=== PATIENT | female | born 1955 | race Caucasian/White ===

== ENCOUNTER → 2016-10-20 | Outpatient (CLI) | payer BC ==
--- NOTE | 2016-10-20 08:16 | US ---
EXAMINATION TYPE: US abdomen complete DATE OF EXAM: 10/20/2016 7:57 AM COMPARISON: NONE CLINICAL HISTORY: R74.8 Elevated liver enzymes,. EXAM MEASUREMENTS: Liver Length: 16.2 cm Gallbladder Wall: 0.3 cm CBD: 0.5 cm Spleen: 11.2 cm Right Kidney: 11.8 x 4.6 x 5.0 cm Left Kidney: 11.4 x 5.3 x 5.2 cm Pancreas: Tail obscured by overlying bowel gas Liver: wnl Gallbladder: echogenic foci, does not appear mobile Evidence for sonographic Camargo's sign: no CBD: wnl Spleen: wnl Right Kidney: wnl Left Kidney: wnl Upper IVC: wnl Abd Aorta: wnl The liver is homogenous. The intrahepatic portion of the IVC and proximal abdominal aorta are within normal limits. Nonmobile gallstone. Common bile duct is unremarkable. The visualized portions of th e pancreas are homogenous. The spleen is unremarkable. Kidneys are symmetric and free of hydronephr osis. No renal lesions are seen. IMPRESSION: Cholelithiasis. Nonmobile gallstone identified.
--- NOTE | 2016-10-20 14:52 | MM ---
Reason for exam: screening (asymptomatic). Last mammogram was performed 1 year and 1 month ago. History: Patient is postmenopausal. Took estrogen for 1 year. Physical Findings: A clinical breast exam by your physician is recommended on an annual basis and results should be correlated with mammographic findings. MG Screening Mammo w CAD Bilateral CC and MLO view(s) were taken. Prior study comparison: September 10, 2015, bilateral MG screening mammo w CAD. March 21, 2013, bilateral digital screening mammo w/CAD. The breast tissue is heterogeneously dense. This may lower the sensitivity of mammography. There is no discrete abnormality. No significant changes when compared with prior studies. ASSESSMENT: Negative, BI-RAD 1 RECOMMENDATION: Routine screening mammogram of both breasts in 1 year.
== END | disposition home or self-care (01) ==
LOC: RADMAMWWP 07:14
PROVIDERS: ATTEND Family Medicine
DX: Z12.31 Encounter for screening mammogram for malignant neoplasm of breast (principal); K80.20 Calculus of gallbladder without cholecystitis without obstruction; R74.8 Abnormal levels of other serum enzymes
CPT/HCPCS: 76700; G0202

== ENCOUNTER → 2017-12-18 | Outpatient (CLI) | payer BC ==
--- NOTE | 2017-12-19 07:43 | XR ---
EXAMINATION TYPE: XR Hip Complete LT DATE OF EXAM: 12/19/2017 COMPARISON: NONE HISTORY: 62 year-old female with left hip pain TECHNIQUE: 2 views FINDINGS: There is mild axial joint space narrowing with marginal spurring. Osteitis pubis is noted. Left SI teresa int appears intact. No acute fracture or dislocation. IMPRESSION: Mild left hip osteoarthrosis. Osteitis pubis. No acute osseous abnormality seen.
== END | disposition home or self-care (01) ==
LOC: RADXRYALE 16:21
PROVIDERS: ATTEND Physician Assistant Medical
DX: M16.12 Unilateral primary osteoarthritis, left hip (principal); M85.30 Osteitis condensans, unspecified site
CPT/HCPCS: 73502

== ENCOUNTER → 2017-12-21 | Outpatient (CLI) | payer BC ==
--- NOTE | 2017-12-21 10:52 | US ---
EXAMINATION TYPE: US carotid duplex BILAT DATE OF EXAM: 12/21/2017 COMPARISON: NONE CLINICAL HISTORY: R42 Dizziness,E78.2 Mixed Hyperlipidemia...... right sided headache, visual changes EXAM MEASUREMENTS: RIGHT: Peak Systolic Velocity (PSV) cm/sec ----- Right CCA: 63.9 ----- Right ICA: 88.6 ----- Right ECA: 101.8 ICA/CCA ratio: 1.4 RIGHT: End Diastole cm/sec ----- Right CCA: 22.2 ----- Right ICA: 33.7 ----- Right ECA: 32.3 LEFT: Peak Systolic Velocity (PSV) cm/sec ----- Left CCA: 87.9 ----- Left ICA: 80.1 ----- Left ECA: 72.2 ICA/CCA ratio: 0.9 LEFT: End Diastole cm/sec ----- Left CCA: 31.1 ----- Left ICA: 37.5 ----- Left ECA: 15.0 VERTEBRALS (direction of flow): Right Vertebral: Antegrade Left Vertebral: Antegrade Rhythm: Normal No significant velocity elevations. Mild plaque bilateral bifurcations IMPRESSION: Mild degree of grayscale atheromatous plaquing with no sonographically evident hemodynam ically significant stenosis within either visualized carotid arterial system.
--- NOTE | 2017-12-21 11:44 | ECHOF ---
Referral Reason:R42 Dizziness,E78.2 Mixed Hyperlipidemia..... MEASUREMENTS -------- HEIGHT: 170.2 cm WEIGHT: 104.3 kg BP: RVIDd: 2.5 cm (< 3.3) IVSd: 1.1 cm (0.6 - 1.1) LVIDd: 4.0 cm (3.9 - 5.3) LVPWd: 1.1 cm (0.6 - 1.1) IVSs: 1.3 cm LVIDs: 2.6 cm LVPWs: 1.3 cm LAESV Index (A-L): 19.71 ml/m Ao Diam: 2.6 cm (2.0 - 3.7) AV Cusp: 1.8 cm (1.5 - 2.6) LA Diam: 3.5 cm (2.7 - 3.8) EPSS: 0.4 cm MV E Asif: 0.67 m/s MV DecT: 316 ms MV A Asif: 1.03 m/s MV E/A Ratio: 0.65 RAP: 5.00 mmHg RVSP: 27.22 mmHg MV EF SLOPE: 72.41 mm/s (70 - 150) MV EXCURSION: 1.43 cm (> 18.000) FINDINGS -------- Sinus rhythm. This was a technically adequate study. The left ventricular size is normal. There is borderline concentric left ventricular hypertrophy. Overall left ventricular systolic function is normal with, an EF between 55 - 60 %. The right ventricle is normal in size and function. Normal LA size by volume 22+/-6 ml/m2. The right atrium is normal in size. The aortic valve is trileaflet, and appears structurally normal. No aortic stenosis or regurgitation. The mitral valve leaflets are mildly thickened. There is trace to mild mitral regurgitation. Trace tricuspid regurgitation present. Right ventricular systolic pressure is normal at < 35 mmHg. There is no evidence of pulmonary hypertension. Trace/mild (physiologic) pulmonic regurgitation. The aortic root size is normal. Normal inferior vena cava with normal inspiratory collapse consistent with estimated right atrial pre ssure of 5 mmHg. There is no pericardial effusion. CONCLUSIONS -------- 1. Sinus rhythm. 2. This was a technically adequate study. 3. The left ventricular size is normal. 4. There is borderline concentric left ventricular hypertrophy. 5. Overall left ventricular systolic function is normal with, an EF between 55 - 60 %. 6. Normal LA size by volume 22+/-6 ml/m2. 7. The aortic valve is trileaflet, and appears structurally normal. No aortic stenosis or regurgitati on. 8. The mitral valve leaflets are mildly thickened. 9. There is trace to mild mitral regurgitation. 10. Trace tricuspid regurgitation present. 11. Right ventricular systolic pressure is normal at < 35 mmHg. 12. There is no evidence of pulmonary hypertension. 13. Trace/mild (physiologic) pulmonic regurgitation. 14. The aortic root size is normal. 15. There is no pericardial effusion. MANAGER PRINTING: Hadley Lopez RDCS
== END | disposition home or self-care (01) ==
LOC: RADECHMAIN 08:12
PROVIDERS: ATTEND Family Medicine
DX: I65.23 Occlusion and stenosis of bilateral carotid arteries (principal); I34.0 Nonrheumatic mitral (valve) insufficiency; I37.1 Nonrheumatic pulmonary valve insufficiency; I51.7 Cardiomegaly; H53.30 Unspecified disorder of binocular vision; E78.2 Mixed hyperlipidemia
CPT/HCPCS: 93306; 93880

== ENCOUNTER → 2018-01-11 | Outpatient (CLI) | payer BC ==
--- NOTE | 2018-01-11 12:50 | US ---
EXAMINATION TYPE: US abdomen complete DATE OF EXAM: 01/11/2018 COMPARISON: US 10/20/2016, CLINICAL HISTORY: R945 ABN LIVER FUNCTION STUDIES. EXAM MEASUREMENTS: Liver Length: 14.6 cm Gallbladder Wall: Surgically absent CBD: 0.8 cm Spleen: 10.9 cm Right Kidney: 10.2 x 4.5 x 4.9 cm Left Kidney: 10.7 x 4.7 x 4.7 cm Pancreas: Obscured by bowel gas Liver: Diffusely heterogeneous Gallbladder: Surgically absent Evidence for sonographic Camargo's sign: No CBD: wnl Spleen: Possible granulomas visualized Right Kidney: No hydronephrosis. Corticomedullary thinning Left Kidney: No hydronephrosis. Lower pole obscured by bowel gas. Upper IVC: wnl Abd Aorta: wnl IMPRESSION: 1. Some mild fatty infiltration of the liver may be present. Visualized abdomen ultrasound is otherwi se unremarkable.
== END | disposition home or self-care (01) ==
LOC: RADUSWWP 07:54
PROVIDERS: ATTEND Family Medicine
DX: R94.5 Abnormal results of liver function studies (principal)
CPT/HCPCS: 76700

== ENCOUNTER → 2018-03-08 | Outpatient (CLI) | payer BC ==
[2018-03-08 09:01] LABS: Basophils % (A) 1 %; Eosinophils # (A) 0.3 k/uL (0-0.7); Eosinophils % (A) 5 %; HCT 43.7 % (34.0-46.0); HGB 14.5 gm/dL (11.4-16.0); Lymphocytes # (A) 1.7 k/uL (1.0-4.8); Lymphocytes % (A) 30 %; MCH 29.5 pg (25.0-35.0); MCHC 33.1 g/dL (31.0-37.0); MCV 89.1 fL (80.0-100.0); Mean Platelet Volume 7.5; Monocytes # (A) 0.6 k/uL (0-1.0); Monocytes % (A) 10 %; Neutrophils % (A) 52 %; Platelet Count 272 k/uL (150-450); RBC 4.91 m/uL (3.80-5.40); RDW 13.5 % (11.5-15.5); WBC 5.7 k/uL (3.8-10.6)
[2018-03-08 09:20] LABS: ALT 913 U/L (9-52); Albumin 4.1 g/dL (3.5-5.0); Alkaline Phosphatase 637 U/L (38-126); Anion Gap 6 mmol/L; Blood Urea Nitrogen 17 mg/dL (7-17); Calcium 9.9 mg/dL (8.4-10.2); Carbon Dioxide 28 mmol/L (22-30); Chloride 107 mmol/L (98-107); Glucose 99 mg/dL (74-99); Potassium 5.1 mmol/L (3.5-5.1); Sodium 141 mmol/L (137-145); Total Bilirubin 1.1 mg/dL (0.2-1.3)
[2018-03-08 09:34] LABS: AST 855 U/L (14-36)
[2018-03-08 17:41] LABS: Protein, Total 7.4 g/dL (6.2-8.2)
[2018-03-08 18:45] LABS: Hepatitis C IgG Antibody Non-Reactive (Non-Reactive)
[2018-03-09 12:32] LABS: Ceruloplasmin 38.6 mg/dL (20.0-60.0)
[2018-03-11 09:15] LABS: Albumin 3.68 g/dL (3.80-4.90); Gamma Globulin 1.45 g/dL (0.70-1.50)
== END | disposition home or self-care (01) ==
LOC: LABWHC1 08:08
PROVIDERS: ATTEND Internal Medicine Gastroenterology
DX: R94.5 Abnormal results of liver function studies (principal)
CPT/HCPCS: 36415; 80053; 82103; 82390; 82728; 83516; 83540; 83550; 84165; 85025; 86038; 86803; 87340

== ENCOUNTER → 2018-03-15 | Outpatient (CLI) | payer BC ==
[2018-03-15 10:46] LABS: ALT 496 U/L (9-52); AST 359 U/L (14-36); Albumin 4.2 g/dL (3.5-5.0); Alkaline Phosphatase 377 U/L (38-126); Anion Gap 9 mmol/L; Blood Urea Nitrogen 19 mg/dL (7-17); Calcium 10.3 mg/dL (8.4-10.2); Carbon Dioxide 26 mmol/L (22-30); Chloride 106 mmol/L (98-107); Glucose 105 mg/dL (74-99); Potassium 4.4 mmol/L (3.5-5.1); Sodium 141 mmol/L (137-145); Total Bilirubin 0.9 mg/dL (0.2-1.3); Total Protein 8.2 g/dL (6.3-8.2)
[2018-03-15 16:53] LABS: Hepatitis A Antibody IgM Non-Reactive (Non-Reactive); Hepatitis B Core IgM Non-Reactive (Non-Reactive)
== END | disposition home or self-care (01) ==
LOC: LABWHC1 08:30
PROVIDERS: ATTEND Internal Medicine Gastroenterology
DX: R74.8 Abnormal levels of other serum enzymes (principal)
CPT/HCPCS: 36415; 80053; 80074

== ENCOUNTER → 2018-05-10 | Outpatient (CLI) | payer BC ==
[2018-05-10 09:35] LABS: Basophils # (A) 0.1 k/uL (0-0.2); Basophils % (A) 1 %; Eosinophils # (A) 0.2 k/uL (0-0.7); Eosinophils % (A) 2 %; HCT 44.6 % (34.0-46.0); HGB 14.5 gm/dL (11.4-16.0); Lymphocytes # (A) 2.3 k/uL (1.0-4.8); Lymphocytes % (A) 29 %; MCH 28.8 pg (25.0-35.0); MCHC 32.4 g/dL (31.0-37.0); MCV 88.9 fL (80.0-100.0); Mean Platelet Volume 6.8; Monocytes # (A) 0.7 k/uL (0-1.0); Monocytes % (A) 9 %; Neutrophils # (A) 4.6 k/uL (1.3-7.7); Neutrophils % (A) 57 %; Platelet Count 296 k/uL (150-450); RBC 5.02 m/uL (3.80-5.40); RDW 13.4 % (11.5-15.5); WBC 8.1 k/uL (3.8-10.6)
[2018-05-10 17:18] LABS: Albumin 4.1 g/dL (3.80-4.90); Albumin/Globulin Ratio 1.58 (1.20-2.10); Anion Gap 7.1 mmol/L (4.00-12.00); Calcium 9.8 mg/dL (8.7-10.3); Carbon Dioxide 26.9 mmol/L (21.6-31.8); Globulin 2.6 g/dL (2.1-3.7); Potassium 4.8 mmol/L (3.5-5.5); Total Bilirubin 0.5 mg/dL (0.2-1.2); Total Protein 6.7 g/dL (6.2-8.2)
== END ==
LOC: LABWHC1 08:39
PROVIDERS: ATTEND Internal Medicine Gastroenterology
DX: R94.5 Abnormal results of liver function studies (principal)
CPT/HCPCS: 36415; 80053; 85025

== ENCOUNTER → 2018-11-22 | Outpatient (CLI) | payer BC ==
--- NOTE | 2018-11-25 10:05 | MM ---
Reason for exam: screening (asymptomatic). Last mammogram was performed 2 years and 1 month ago. History: Patient is postmenopausal. Took estrogen for 1 year. Physical Findings: A clinical breast exam by your physician is recommended on an annual basis and results should be correlated with mammographic findings. MG Screening Mammo w CAD Bilateral CC and MLO view(s) were taken. Prior study comparison: October 20, 2016, bilateral MG screening mammo w CAD. September 10, 2015, bilateral MG screening mammo w CAD. The breast tissue is heterogeneously dense. This may lower the sensitivity of mammography. There is no discrete abnormality. ASSESSMENT: Negative, BI-RAD 1 RECOMMENDATION: Routine screening mammogram of both breasts in 1 year.
== END | disposition home or self-care (01) ==
LOC: RADMAMWWP 08:19
PROVIDERS: ATTEND Obstetrics & Gynecology
DX: Z12.31 Encounter for screening mammogram for malignant neoplasm of breast (principal)
CPT/HCPCS: 77067

== ENCOUNTER → 2020-08-03 | Outpatient (CLI) | payer OTHER ==
--- NOTE | 2020-08-04 10:24 | MM ---
Reason for exam: screening (asymptomatic). Last mammogram was performed 1 year and 8 months ago. History: Patient is postmenopausal. Took estrogen for 1 year. Physical Findings: A clinical breast exam by your physician is recommended on an annual basis and results should be correlated with mammographic findings. MG Screening Mammo w CAD Bilateral CC and MLO view(s) were taken. Prior study comparison: November 22, 2018, bilateral MG screening mammo w CAD. October 20, 2016, bilateral MG screening mammo w CAD. The breast tissue is heterogeneously dense. This may lower the sensitivity of mammography. Finding: There is a 4 mm and 7mm equal density (isodense), obscured oval mass in the upper outer quadrant of the left breast and left central breast. There is a chronic nodularity in the right breast, stable. ASSESSMENT: Incomplete: need additional imaging evaluation, BI-RAD 0 RECOMMENDATION: Special view mammogram of the left breast. If lesion persists on supplemental views, image directed ultrasound is recommended. [facility] will attempt to contact patient to return for supplemental views and ultrasound if indicated.
== END | disposition home or self-care (01) ==
LOC: RADMAMWWP 09:47
PROVIDERS: ATTEND Family Medicine
DX: Z12.31 Encounter for screening mammogram for malignant neoplasm of breast (principal)
CPT/HCPCS: 77067

== ENCOUNTER → 2020-08-05 | Outpatient (CLI) | payer OTHER ==
--- NOTE | 2020-08-05 10:32 | MM ---
Reason for exam: additional evaluation requested from abnormal screening. Last mammogram was performed less than 1 month ago. History: Patient is postmenopausal. Took estrogen for 1 year. Physical Findings: Nurse did not find any significant physical abnormalities on exam. MG Work Up Mamm w CAD LT Spot compression CC, spot compression MLO, and LM view(s) were taken of the left breast. Prior study comparison: August 03, 2020, bilateral MG screening mammo w CAD. November 22, 2018, bilateral MG screening mammo w CAD. There are scattered fibroglandular densities. Nodule left breast 12-1 o'clock 6.4cm from nipple. A second nodule 3cm from nipple measuring 5mm. These results were verbally communicated with the patient and result sheet given to the patient on 08/05/20. ASSESSMENT: Incomplete: need additional imaging evaluation, BI-RAD 0 RECOMMENDATION: Ultrasound of the left breast.
--- NOTE | 2020-08-05 10:44 | USB ---
Reason for exam: additional evaluation requested from abnormal screening. History: Patient is postmenopausal. Took estrogen for 1 year. US Breast Workup Limited LT Left limited breast ultrasound including focal area of concern, retroareolar and axilla demonstrates a 0.6 x 0.9 x 0.6cm oval, hypoechoic lesion at 1 o'clock posterior enhancements for which a biopsy is recommended, a 0.4 x 0.4 x 0.2cm oval, cystic lesion at 6 o'clock, a 0.4 x 0.6 x 0.3cm oval, cystic lesion at 8 o'clock and a 1.8 x 2.4 x 0.9cm oval lymph node at the axilla. These results were verbally communicated with the patient and result sheet given to the patient on 08/05/20. ASSESSMENT: Suspicious, BI-RAD 4 RECOMMENDATION: Ultrasound core biopsy of the left breast. 1 o'clock Called [facility] with mammographic findings. Office will schedule patient for surgical consult one reports are recieved. PRELIMINARY REPORT CALLED AND FAXED ON 08/05/20.
== END | disposition home or self-care (01) ==
LOC: RADMAMWWP 08:10
PROVIDERS: ATTEND Family Medicine
DX: R92.8 Other abnormal and inconclusive findings on diagnostic imaging of breast (principal)
CPT/HCPCS: 77065

== ENCOUNTER → 2021-04-14 | Outpatient (CLI) | payer OTHER ==
--- NOTE | 2021-04-15 10:47 | MM ---
Reason for exam: follow-up at short interval from prior study. Last mammogram was performed 8 months ago. History: Patient is postmenopausal. Ultrasound-guided core biopsy of the left breast, August 2020. Took estrogen for 1 year. Physical Findings: Nurse did not find any significant physical abnormalities on exam. MG Diagnostic Mammo LT w CAD CC and MLO view(s) were taken of the left breast. Prior study comparison: August 05, 2020, left breast MG work up mamm w CAD LT. August 03, 2020, bilateral MG screening mammo w CAD. There are scattered fibroglandular densities. Left upper outer quadrant mass slightly smaller at 8mm versus 10mm previously. Clip is not at the mass. Stable anterior medial left nodularity, likely a cyst on ultrasound. These results were verbally communicated with the patient and result sheet given to the patient on 04/14/21. ASSESSMENT: Incomplete: need additional imaging evaluation, BI-RAD 0 RECOMMENDATION: Ultrasound of the left breast.
--- NOTE | 2021-04-15 11:01 | USB ---
Reason for exam: additional evaluation requested from abnormal screening. History: Patient is postmenopausal. Ultrasound-guided core biopsy of the left breast, August 2020. Took estrogen for 1 year. US Breast LT Technologist: Elsa Kessler Left complete breast ultrasound includes all four quadrants, the retroareolar region and axilla. Finding demonstrates a 0.5 x 0.4 x 0.4cm cystic lesion at 8 o'clock, stable, benign and a 7 x 6 x 6mm lesion at 1 o'clock versus 9 x 6 x 6mm previously 8 months ago, unable to demonstrate that this area was biopsied. But given pathology diagnosis of fibroadenoma and smaller size after 8 months, we suspect post biopsy clip malpositioning. Short term follow up recommended. These results were verbally communicated with the patient and result sheet given to the patient on 04/14/21. ASSESSMENT: Probably benign, BI-RAD 3 RECOMMENDATION: Follow-up diagnostic mammogram of both breasts in 3 months.
== END | disposition home or self-care (01) ==
LOC: RADMAMWWP 13:42
PROVIDERS: ATTEND Family Medicine
DX: N60.02 Solitary cyst of left breast (principal); N63.21 Unspecified lump in the left breast, upper outer quadrant; Z78.0 Asymptomatic menopausal state
CPT/HCPCS: 77065

== ENCOUNTER → 2021-07-22 | Outpatient (CLI) | payer OTHER ==
--- NOTE | 2021-07-22 14:47 | MM ---
Reason for exam: follow-up at short interval from prior study. Last mammogram was performed 3 months ago. History: Patient is postmenopausal. Ultrasound-guided core biopsy of the left breast, August 2020. Took estrogen for 1 year. Physical Findings: Nurse did not find any significant physical abnormalities on exam. MG Diagnostic Mammo w CAD [place] Bilateral CC and MLO view(s) were taken. Prior study comparison: April 14, 2021, left breast MG diagnostic mammo LT w CAD. August 05, 2020, left breast MG work up mamm w CAD LT. The breast tissue is heterogeneously dense. This may lower the sensitivity of mammography. There is chronic nodularity in the left breast. Focal asymmetry not reproduced. No significant new findings when compared with previous films. These results were verbally communicated with the patient and result sheet given to the patient on 07/22/21. ASSESSMENT: Benign, BI-RAD 2 RECOMMENDATION: Routine screening mammogram of both breasts in 1 year.
== END | disposition home or self-care (01) ==
LOC: RADMAMWWP 13:46
PROVIDERS: ATTEND Family Medicine
DX: R92.8 Other abnormal and inconclusive findings on diagnostic imaging of breast (principal); Z78.0 Asymptomatic menopausal state
CPT/HCPCS: 77066

== ENCOUNTER → 2023-08-21 | Outpatient (CLI) | payer MEDICARE ==
--- NOTE | 2023-08-22 14:37 | MM ---
Reason for Exam: Screening (asymptomatic). Last mammogram was performed 1 year(s) and 1 month(s) ago. Patient History: Menarche at age 15. First Full-Term at age 27. Postmenopausal. Estrogen for 1 year until age 44. 08/2020, Ultrasound-Guided Core Biopsy on the Left side. Risk Values: Ana 5 year model risk: 2.2%. NCI Lifetime model risk: 8.2%. Prior Study Comparison: 04/14/2021 Left Diagnostic Mammogram, [facility]. 07/22/2021 Bilateral Diagnostic Mammogram, [facility]. 07/25/2022 Bilateral MG 3D screening mammo w/cad, [facility]. Tissue Density: There are scattered areas of fibroglandular density. Findings: Analyzed By CAD. Asymmetry left breast lateral aspect on CC view 5.3 cm from nipple measuring 8 mm unclear on MLO view. Knee the posterior nipple line on MLO view. Right breast There is no suspicious group of microcalcifications or new suspicious mass. Overall Assessment: Incomplete: need additional imaging evaluation, BI-RAD 0 Management: Diagnostic Mammogram of the left breast. Diagnostic Breast Ultrasound of the left breast. [facility] will attempt to contact patient to return for supplemental views and ultrasound if indicated. Patient should continue monthly self-breast exams. A clinical breast exam by your physician is recommended on an annual basis. This exam should not preclude additional follow-up of suspicious palpable abnormalities. Note on Ana scores and lifetime risk: 1. A Ana score greater than 3% is considered moderate risk. If this is the case, consider specialist referral to assess eligibility for a risk reducing agent. 2. If overall lifetime risk for the development of breast cancer is 20% or higher, the patient may qualify for future screening with alternating mammogram and breast MRI. Electronically signed and approved by: Ky Dominguez DO
== END | disposition home or self-care (01) ==
LOC: RADMAMWWP 10:11
PROVIDERS: ATTEND Family Medicine
DX: Z12.31 Encounter for screening mammogram for malignant neoplasm of breast (principal); Z78.0 Asymptomatic menopausal state
CPT/HCPCS: 77063; 77067

== ENCOUNTER → 2023-08-24 | Outpatient (CLI) | payer MEDICARE ==
--- NOTE | 2023-08-24 14:42 | USB ---
Reason for Exam: Additional evaluation requested from abnormal screening. Patient History: Menarche at age 15. First Full-Term at age 27. Postmenopausal. Estrogen for 1 year until age 44. 08/2020, Ultrasound-Guided Core Biopsy on the Left side. Risk Values: Ana 5 year model risk: 2.2%. NCI Lifetime model risk: 8.2%. Technique: Method: Targeted. Prior Study Comparison: 07/22/2021 Bilateral Diagnostic Mammogram, [facility]. 07/25/2022 Bilateral MG 3D screening mammo w/cad, [facility]. 08/21/2023 Bilateral MG 3D screening mammo w/cad, [facility]. Findings: The upper outer quadrant of the left breast, the lower outer quadrant of the left breast, the axilla of the left breast and the retroareolar of the left breast were scanned. Targeted ultrasound lateral aspect of the left breast 12:00 to 6:00 including the subareolar region and axilla. At the 1:00 position, 6 cm from the nipple, there is a mildly lobulated hypoechoic lesion that is circumscribed and with posterior through transmission. Tiny peripheral vascularity. We note similar finding back in the patient's 08/05/2020 ultrasound. Possible fibroadenoma that is fluctuating in size. Short interval follow-up recommended at this was not present on the patient's immediately prior study. No other solid or cystic lesion or axillary lymphadenopathy. Overall Assessment: Probably benign, BI-RAD 3 Management: Diagnostic Mammogram of the left breast in 6 months. Diagnostic Breast Ultrasound of the left breast in 6 months. A clinical breast exam by your physician is recommended on an annual basis and results should be correlated with mammographic findings. This exam should not preclude additional follow-up of suspicious palpable abnormalities. Results were given to the patient verbally at the time of exam. Electronically signed and approved by: Adrienne Kirby M.D. Radiologist
--- NOTE | 2023-08-24 14:51 | MM ---
Reason for Exam: Additional evaluation requested from abnormal screening. Last screening mammogram was performed less than 1 month ago. Patient History: Menarche at age 15. First Full-Term at age 27. Postmenopausal. Estrogen for 1 year until age 44. 08/2020, Ultrasound-Guided Core Biopsy on the Left side. Risk Values: Ana 5 year model risk: 2.2%. NCI Lifetime model risk: 8.2%. Prior Study Comparison: 07/22/2021 Bilateral Diagnostic Mammogram, [facility]. 07/25/2022 Bilateral MG 3D screening mammo w/cad, [facility]. 08/21/2023 Bilateral MG 3D screening mammo w/cad, [facility]. Tissue Density: Left: There are scattered areas of fibroglandular density. Findings: Analyzed By CAD. 9 mm circumscribed nodule persists upper outer quadrant left breast anterior to middle depth. Microclip is located more inferior to this. We note that a similar area was present on older priors including 2020 but not seen on the 2 more recent priors. Further ultrasound evaluation recommended. Overall Assessment: Incomplete: need additional imaging evaluation, BI-RAD 0 Management: Diagnostic Breast Ultrasound of the left breast. Electronically signed and approved by: Adrienne Kirby M.D. Radiologist
== END | disposition home or self-care (01) ==
LOC: RADMAMWWP 13:28
PROVIDERS: ATTEND Family Medicine
DX: R92.322 Mammographic fibroglandular density, left breast (principal); Z78.0 Asymptomatic menopausal state
CPT/HCPCS: 77065; 76642; G0279; 77061

== ENCOUNTER → 2024-05-13 | Outpatient (CLI) | payer MEDICARE ==
--- NOTE | 2024-05-13 14:18 | MM ---
Reason for Exam: Follow-up at short interval from prior study. Last screening mammogram was performed 9 month(s) ago. Patient History: Menarche at age 15. First Full-Term at age 27. Postmenopausal. Estrogen for 1 year until age 44. 08/2020, Ultrasound-Guided Core Biopsy on the Left side. Risk Values: Ana 5 year model risk: 2.2%. NCI Lifetime model risk: 7.9%. Prior Study Comparison: 10/20/2016 Bilateral Screening Mammogram, [facility]. 11/22/2018 Bilateral Screening Mammogram, [facility]. 08/03/2020 Bilateral Screening Mammogram, [facility]. 08/05/2020 Left Diagnostic Mammogram, [facility]. 04/14/2021 Left Diagnostic Mammogram, [facility]. 04/14/2021 Left Diagnostic Ultrasound, [facility]. 07/22/2021 Bilateral Diagnostic Mammogram, [facility]. 07/25/2022 Bilateral MG 3D screening mammo w/cad, [facility]. 08/21/2023 Bilateral MG 3D screening mammo w/cad, [facility]. 08/24/2023 Left MG 3D work up w/cad LT, [facility]. Tissue Density: Left: The breasts are heterogeneously dense, which may obscure small masses. Findings: Analyzed By CAD. The previous central area of nodularity is no longer seen. Microclip upper outer quadrant anterior left breast from prior biopsy. Otherwise, no significant change. Overall Assessment: Incomplete: need additional imaging evaluation, BI-RAD 0 Management: Diagnostic Breast Ultrasound of the left breast. [facility], , 05/13/2024 2:06 PM. Electronically signed and approved by: Adrienne Kirby M.D. Radiologist
--- NOTE | 2024-05-13 14:26 | USB ---
Reason for Exam: Follow-up at short interval from prior study. Patient History: Menarche at age 15. First Full-Term at age 27. Postmenopausal. Estrogen for 1 year until age 44. 08/2020, Ultrasound-Guided Core Biopsy on the Left side. Risk Values: Ana 5 year model risk: 2.2%. NCI Lifetime model risk: 7.9%. Technique: Method: Targeted. Prior Study Comparison: 07/25/2022 Bilateral MG 3D screening mammo w/cad, [facility]. 08/21/2023 Bilateral MG 3D screening mammo w/cad, [facility]. 08/24/2023 Left MG 3D work up w/cad , [facility]. Findings: The lower outer quadrant of the left breast, the axilla of the left breast and the retroareolar of the left breast were scanned. Targeted ultrasound lateral left breast from 12:00 to 5:00 including scanning of the subareolar region and axilla. At the 1:00 position, 6 cm from the nipple, there is a circumscribed oval hypoechoic area decreasing in size. Currently measuring 6 x 5 x 4 mm versus 9 x 8 x 5 mm, previously. This indicates a benign etiology. As the mammographic finding has resolved, recommend returning to annual screening. Overall Assessment: Benign, BI-RAD 2 Management: Screening Mammogram of both breasts in 6 months. A clinical breast exam by your physician is recommended on an annual basis and results should be correlated with mammographic findings. This exam should not preclude additional follow-up of suspicious palpable abnormalities. Results were given to the patient verbally at the time of exam. [facility], , 05/13/2024 2:23 PM. Electronically signed and approved by: Adrienne Kirby M.D. Radiologist
== END | disposition home or self-care (01) ==
LOC: RADMAMWWP 13:21
PROVIDERS: ATTEND Student in an Organized Health Care Education/Training Program
DX: R92.8 Other abnormal and inconclusive findings on diagnostic imaging of breast (principal); Z78.0 Asymptomatic menopausal state; R92.332 Mammographic heterogeneous density, left breast
CPT/HCPCS: 77065; 76642; G0279; 77061

== ENCOUNTER 2024-09-09 17:14 | Emergency (ER) | payer MEDICARE ==
[2024-09-09 17:53] LABS: Basophils # (A) 0.1 k/uL (0-0.2); Basophils % (A) 1 %; Eosinophils # (A) 0.3 k/uL (0-0.7); Eosinophils % (A) 4 %; HCT 42.9 % (34.0-46.0); HGB 14.1 gm/dL (11.4-16.0); Lymphocytes # (A) 2.1 k/uL (1.0-4.8); Lymphocytes % (A) 25 %; MCH 29.3 pg (25.0-35.0); MCHC 32.8 g/dL (31.0-37.0); MCV 89.3 fL (80.0-100.0); Mean Platelet Volume 8.1; Monocytes # (A) 0.6 k/uL (0-1.0); Monocytes % (A) 7 %; Neutrophils # (A) 5.1 k/uL (1.3-7.7); Neutrophils % (A) 61 %; Platelet Count 253 k/uL (150-450); RDW 12.9 % (11.5-15.5); WBC 8.4 k/uL (3.8-10.6)
[2024-09-09 18:05] LABS: ALT 34 U/L (4-34); AST 31 U/L (14-36); African American GFR (CKD) 78 (>60 ml/min/1.73 sqM); Albumin 4.5 g/dL (3.5-5.0); Alkaline Phosphatase 108 U/L (38-126); Anion Gap 8 mmol/L; Blood Urea Nitrogen 22 mg/dL (7-17); Calcium 10.2 mg/dL (8.4-10.2); Carbon Dioxide 26 mmol/L (22-30); Chloride 102 mmol/L (98-107); Glucose 111 mg/dL (74-99); Non-African American GFR(CKD) 68 (>60 ml/min/1.73 sqM); Potassium 3.9 mmol/L (3.5-5.1); Sodium 136 mmol/L (137-145); Total Bilirubin 0.6 mg/dL (0.2-1.3); Total Protein 7.7 g/dL (6.3-8.2)
--- NOTE | 2024-09-09 18:31 | XR ---
EXAMINATION TYPE: XR chest 2V DATE OF EXAM: 09/09/2024 6:11 PM COMPARISON: None CLINICAL INDICATION: Female, 68 years old with history of SOB; H TECHNIQUE: XR chest 2V Frontal and lateral views of the chest. FINDINGS: Lungs/Pleura: There is no evidence of pleural effusion, focal consolidation, or pneumothorax. Pulmonary vascularity: Unremarkable. Heart/mediastinum: Cardiomediastinal silhouette is unremarkable. Musculoskeletal: No acute osseous pathology. IMPRESSION: No acute cardiopulmonary disease/process. [facility], , 09/09/2024 6:29 PM
--- NOTE | 2024-09-09 18:45 | ED ---
Dizziness HPI - General Source: patient, RN notes reviewed Mode of arrival: ambulatory Limitations: no limitations <NatanaelMargie - Last Filed: 09/09/24 18:43> - General Source: patient, RN notes reviewed, old records reviewed Mode of arrival: ambulatory Limitations: no limitations - History of Present Illness MD Complaint: dizziness, other (Chest pain and shortness of breath) -: days(s) Description: sense of movement History of Same: Yes History of Trauma: Yes Severity: moderate Worsens With: nothing Associated Symptoms: chest pain, shortness of breath <Silver Mondragon - Last Filed: 09/10/24 08:33> - General Chief Complaint: Dizziness Stated Complaint: SOB, Dizziness Time Seen by Provider: 09/09/24 18:44 - History of Present Illness Initial Comments: Quick [id number] female with history of hypertension and hyperlipidemia presenting for shortness of breath and lightheadedness increasing in severity over the past 2 weeks. Also today she noticed a tingling sensation in her left arm. Denies chest pain or weakness. (Margie Santoyo) This is a 68 female to the ER for high blood pressure and high cholesterol shortness of breath lightheadedness episodic symptoms for about 2 to 3 weeks maybe longer. Patient has spoke with cardiology and does have appointment about a month and a half from now. Chest pain left arm numbness and tingling and shortness of breath began today more significant than past (Silver Mondragon) - Related Data Home Medications Medication Instructions Recorded Confirmed Unable To Assess [Unable to Assess] 12/16/13 12/16/13 Allergies Allergy/AdvReac Type Severity Reaction Status Date / Time No Known Allergies Allergy Verified 09/09/24 17:24 Review of Systems ROS Other: All systems not noted in ROS Statement are negative. <Margie Santoyo - Last Filed: 09/09/24 18:43> ROS Other: All systems not noted in ROS Statement are negative. <Silver Mondragon - Last Filed: 09/10/24 08:33> ROS Statement: Those systems with pertinent positive or pertinent negative responses have been documented in the HPI. Past Medical History Past Medical History: Hyperlipidemia, Hypertension History of Any Multi-Drug Resistant Organisms: None Reported Additional Past Surgical History / Comment(s): ovarian cyst, throat Past Psychological History: No Psychological Hx Reported Smoking Status: Never smoker Past Alcohol Use History: Occasional Past Drug Use History: None Reported <Margie Santoyo - Last Filed: 09/09/24 18:43> General Exam Limitations: no limitations <Margie Santoyo - Last Filed: 09/09/24 18:43> General appearance: alert, in no apparent distress Head exam: Present: atraumatic, normocephalic, normal inspection Eye exam: Present: normal appearance, PERRL, EOMI. Absent: scleral icterus, conjunctival injection, periorbital swelling ENT exam: Present: normal exam, mucous membranes moist Neck exam: Present: normal inspection. Absent: tenderness, meningismus, lymphadenopathy Respiratory exam: Present: normal lung sounds bilaterally. Absent: respiratory distress, wheezes, rales, rhonchi, stridor Cardiovascular Exam: Present: regular rate, normal rhythm, normal heart sounds. Absent: systolic murmur, diastolic murmur, rubs, gallop, clicks GI/Abdominal exam: Present: soft, normal bowel sounds. Absent: distended, tend erness, guarding, rebound, rigid Extremities exam: Present: normal inspection, full ROM, normal capillary refill. Absent: tenderness, pedal edema, joint swelling, calf tenderness Back exam: Present: normal inspection Neurological exam: Present: alert, oriented X3, CN II-XII intact Psychiatric exam: Present: normal affect, normal mood Skin exam: Present: warm, dry, intact, normal color. Absent: rash <Silver Mondragon - Last Filed: 09/10/24 08:33> - General Exam Comments Initial Comments: Visual Physical Exam Vital signs reviewed General: Well-appearing, nontoxic, no acute distress. Head: Normocephalic, atraumatic Eyes: PERRLA, EOMI ENT: Airway patent Chest: Nonlabored breathing Skin: No visual rash, normal skin tone Neuro: Alert and oriented 3 Musculoskeletal: No gross abnormalities (Margie Santoyo) Course <Silver Mondragon - Last Filed: 09/10/24 08:33> Vital Signs 09/09/24 09/09/24 17:21 20:18 Temperature 98.1 F 97.9 F Pulse Rate 95 74 Respiratory 20 18 Rate Blood Pressure 185/88 148/92 O2 Sat by Pulse 97 99 Oximetry - Reevaluation(s) Reevaluation #1: 09/09/24 20:07 Medical records reviewed (Silver Mondragon) Reevaluation #2: 09/09/24 20:07 Patient symptoms unchanged Patient had no shortness of breath on arrival to the ER no chest pain Patient had no recurrent events here in the ER (Silver Mondragon) Reevaluation #3: 09/09/24 20:07 Patient informed of results and questions answered (Silver Mondragon) Reevaluation #4: Was pt. sent in by a medical professional or institution (, [facility], [facility], urgent care, hospital, or usp...) When possible be specific @ -no Did you speak to anyone other than the patient for history (EMS, parent, family, police, friend...)? What history was obtained from this source @ -no Did you review nursing and triage notes (agree or disagree)? Why? @ -agree Are old charts reviewed (outside hosp., previous admission, EMS record, old EKG, old radiological studies, urgent care reports/EKG's, usp records)? Report findings @ -yes Differential Diagnosis (chest pain, altered mental status, abdominal pain women, abdominal pain men, vaginal bleeding, weakness, fever, dyspnea, syncope, headache, dizziness, GI bleed, back pain, seizure, CVA, palpatations, mental health, musculoskeletal)? @ -prior EKG interpreted by me (3pts min.). @ -yes X-rays interpreted by me (1pt min.). @ -yes negative for acute disease CT interpreted by me (1pt min.). @ -no U/S interpreted by me (1pt. min.). @ -no What testing was considered but not performed or refused? (CT, X-rays, U/S, labs)? Why? @ -none What meds were considered but not given or refused? Why? @ -none Did you discuss the management of the patient with other professionals (professionals i.e. MATTHEW Huerta, [facility], lab, RT, psych nurse, geriatric social worker, piano sounding board matcher, teacher, chief procurement officer, caseworker protective services)? Give summary @ -no Was smoking cessation discussed for >3mins.? @ -no Was critical care preformed (if so, how long)? @ -no Were there social determinants of health that impacted care today? How? ( Homelessness, low income, unemployed, alcoholism, drug addiction, transportation, low edu. Level, literacy, decrease access to med. care, long-term, rehab)? @ -none Was there de-escalation of care discussed even if they declined (Discuss DNR or withdrawal of care, Hospice)? DNR status @ -no What co-morbidities impacted this encounter? (DM, HTN, Smoking, COPD, CAD, Cancer, CVA, ARF, Chemo, Hep., AIDS, mental health diagnosis, sleep apnea, morbid obesity)? @ -none Was patient admitted / discharged? Hospital course, mention meds given and route, prescriptions, significant lab abnormalities, going to OR and other pertinent info. @ - 68 female to ER for chest pain chest pain evaluation. Shortness of breath episodic events. Normal testing here in the ER patient can be discharged home Discharge Undiagnosed new problem with uncertain prognosis? @ -no Drug Therapy requiring intensive monitoring for toxicity (Heparin, Nitro, Insulin, Cardizem)? @ -no Were any procedures done? @ -no Diagnosis/symptom? @ -Chest pain Acute, or Chronic, or Acute on Chronic? @ -Acute Uncomplicated (without systemic symptoms) or Complicated (systemic symptoms)? @ -Complicated Side effects of treatment? @ -no Exacerbation, Progression, or Severe Exacerbation? @ -exacerbation Poses a threat to life or bodily function? How? (Chest pain, USA, CT, pneumonia, PE, COPD, DKA, ARF, appy, cholecystitis, CVA, Diverticulitis, Homicidal, Suicidal, threat to staff... and all critical care pts) @ -yes with chest pain (Silver Mondragon) Reevaluation #5: Differential Chest Pain: Stable Angina, Unstable Angina, STEMI, NSTEMI Aortic Dissection, Pneumothorax, Musculoskeletal, Esophageal Spasm GERD, Cholecystitis, Pancreatitis, Zoster, this is not meant to be an all-inclusive list. (Silver Mondragon) EKG Findings - EKG Comments: EKG Findings:: EKG is sinus 92 DE 146 QRS 91 QTc 416 - EKG Results: EKG: interpreted by ERMD <Silver Mondragon - Last Filed: 09/10/24 08:33> Medical Decision Making - Lab Data Result diagrams: 09/09/24 17:45 09/09/24 17:45 <Margie Santoyo - Last Filed: 09/09/24 18:43> - Lab Data Result diagrams: 09/09/24 17:45 09/09/24 17:45 - EKG Data -: EKG Interpreted by Me - Radiology Data Radiology results: report reviewed (Chest x-ray is negative for acute disease), image reviewed <Silver Mondragon - Last Filed: 09/10/24 08:33> - Medical Decision Making I completed the quick note portion of this chart signed Margie Santoyo PA-C (Margie Santoyo) 68 female to ER for chest pain chest pain evaluation. Shortness of breath episodic events. Normal testing here in the ER patient can be discharged home (Silver Mondragon) - Lab Data Lab Results 09/09/24 09/09/24 09/09/24 Range/Units 17:45 17:45 18:52 WBC 8.4 (3.8-10.6) k/uL RBC 4.80 (3.80-5.40) m/uL Hgb 14.1 (11.4-16.0) gm/dL Hct 42.9 (34.0-46.0) % MCV 89.3 (80.0-100.0) fL MCH 29.3 (25.0-35.0) pg MCHC 32.8 (31.0-37.0) g/dL RDW 12.9 (11.5-15.5) % Plt Count 253 (150-450) k/uL MPV 8.1 Neutrophils % 61 % Lymphocytes % 25 % Monocytes % 7 % Eosinophils % 4 % Basophils % 1 % Neutrophils # 5.1 (1.3-7.7) k/uL Lymphocytes # 2.1 (1.0-4.8) k/uL Monocytes # 0.6 (0-1.0) k/uL Eosinophils # 0.3 (0-0.7) k/uL Basophils # 0.1 (0-0.2) k/uL PT 10.3 (10.0-12.5) sec INR 0.9 (<1.2) APTT 21.8 L (22.0-30.0) sec Sodium 136 L (137-145) mmol/L Potassium 3.9 (3.5-5.1) mmol/L Chloride 102 (98-107) mmol/L Carbon Dioxide 26 (22-30) mmol/L Anion Gap 8 mmol/L BUN 22 H (7-17) mg/dL Creatinine 0.89 (0.52-1.04) mg/dL Est GFR (CKD-EPI)AfAm 78 (>60 ml/min/1.73 sqM) Est GFR (CKD-EPI)NonAf 68 (>60 ml/min/1.73 sqM) Glucose 111 H (74-99) mg/dL Calcium 10.2 (8.4-10.2) mg/dL Total Bilirubin 0.6 (0.2-1.3) mg/dL AST 31 (14-36) U/L ALT 34 (4-34) U/L Alkaline Phosphatase 108 (38-126) U/L Troponin I (0.000-0.034) ng/mL Total Protein 7.7 (6.3-8.2) g/dL Albumin 4.5 (3.5-5.0) g/dL 09/09/24 Range/Units 18:52 WBC (3.8-10.6) k/uL RBC (3.80-5.40) m/uL Hgb (11.4-16.0) gm/dL Hct (34.0-46.0) % MCV (80.0-100.0) fL MCH (25.0-35.0) pg MCHC (31.0-37.0) g/dL RDW (11.5-15.5) % Plt Count (150-450) k/uL MPV Neutrophils % % Lymphocytes % % Monocytes % % Eosinophils % % Basophils % % Neutrophils # (1.3-7.7) k/uL Lymphocytes # (1.0-4.8) k/uL Monocytes # (0-1.0) k/uL Eosinophils # (0-0.7) k/uL Basophils # (0-0.2) k/uL PT (10.0-12.5) sec INR (<1.2) APTT (22.0-30.0) sec Sodium (137-145) mmol/L Potassium (3.5-5.1) mmol/L Chloride (98-107) mmol/L Carbon Dioxide (22-30) mmol/L Anion Gap mmol/L BUN (7-17) mg/dL Creatinine (0.52-1.04) mg/dL Est GFR (CKD-EPI)AfAm (>60 ml/min/1.73 sqM) Est GFR (CKD-EPI)NonAf (>60 ml/min/1.73 sqM) Glucose (74-99) mg/dL Calcium (8.4-10.2) mg/dL Total Bilirubin (0.2-1.3) mg/dL AST (14-36) U/L ALT (4-34) U/L Alkaline Phosphatase (38-126) U/L Troponin I <0.012 (0.000-0.034) ng/mL Total Protein (6.3-8.2) g/dL Albumin (3.5-5.0) g/dL Disposition <Margie Santoyo - Last Filed: 09/09/24 18:43> Is patient prescribed a controlled substance at d/c from ED?: No Time of Disposition: 19:50 <Silver Mondragon - Last Filed: 09/10/24 08:33> Clinical Impression: Dyspnea, Chest pain Disposition: HOME SELF-CARE Condition: Good Instructions (If sedation given, give patient instructions): Chest Pain (ED), Dyspnea (ED) Referrals: Ga Barajas DO [Primary Care Provider] - 1-2 days
[2024-09-09 19:32] LABS: INR 0.9 (<1.2); Prothrombin Time 10.3 sec (10.0-12.5)
[2024-09-09 19:35] LABS: Partial Thromboplastin Time 21.8 sec (22.0-30.0)
[2024-09-09 20:19] VITALS: BP 148/92; PULSE 74; RESP 18; TEMP 97.9
== END 2024-09-09 20:19 | disposition home or self-care (01) ==
LOC: EC 17:14
DX: R06.02 Shortness of breath (principal)
CPT/HCPCS: 36415; 71046; 80053; 84484; 85025; 85610; 85730; 93005; 99285

== ENCOUNTER → 2024-10-15 | Outpatient (CLI) | payer MEDICARE ==
--- NOTE | 2024-10-15 13:05 | BD ---
EXAMINATION TYPE: Axial Bone Density DATE OF EXAM: 10/15/2024 CLINICAL HISTORY: 69 years old Female. 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 Menopause before 45: yes, at 32 natural RISK FACTORS HISTORY OF: MEDICATIONS: bp meds, vit d, biotin EXAM MEASUREMENTS: Bone mineral densitometry was performed using the [employer] System. Bone mineral density as measured about the Lumbar spine is: ----- L1-L4(G/cm2): 1.304 T Score Values are as follows: ----- L1: 0.9 ----- L2: 1.0 ----- L3: 1.1 ----- L4: 1.0 ----- L1-L4: 1.0 Z Score Values are as follows: ----- L1: 1.4 ----- L2: 1.4 ----- L3: 1.5 ----- L4: 1.4 ----- L1-L4: 1.5 Bone mineral density is her first dexxa study at [facility]. Bone mineral density about the R hip (g/cm2): 1.153 Bone mineral density about the L hip (g/cm2): 1.147 T Score values are as follows: -----R Neck: 0.6 -----L Neck: 0.2 -----R Total: 1.2 -----L Total: 1.1 Z Score values are as follows: -----R Neck: 1.4 -----L Neck: 1.0 -----R Total: 1.6 -----L Total: 1.6 Bone mineral density is her first bone density test at [facility]. FRAX%s: The graph provided illustrates a 6.0% chance for a major osteoporotic fx and a 0.2% chance fo r the hips probability for fx in 10 years time. IMPRESSION: Normal (Values between +1 and -1 indicate normal bone mass). Consider repeating this study in 5 year s or sooner if there is some new clinical indication. NOTE: T-SCORE=SD OF THE YOUNG ADULT MEAN. [facility], , 10/15/2024 1:02 PM
== END | disposition home or self-care (01) ==
LOC: RADBDWWP 10:24
PROVIDERS: ATTEND Student in an Organized Health Care Education/Training Program
DX: M81.0 Age-related osteoporosis without current pathological fracture (principal); Z78.0 Asymptomatic menopausal state
CPT/HCPCS: 77080